=== PATIENT | male | born 1980 | race Native Hawaiian/Other Pacific Islander ===

== ENCOUNTER 2019-03-22 09:59 | Emergency (ER) | payer SELFPAY ==
[2019-03-22 10:21] VITALS: BP 163/98
--- NOTE | 2019-03-22 12:45 | Emergency Department Report ---
ED Lower Extremity HPI - General Chief Complaint: Extremity Problem,Nontraumatic Stated Complaint: LEG PAIN Time Seen by Provider: 03/22/19 12:36 Source: patient Mode of arrival: Ambulatory Limitations: No Limitations - History of Present Illness MD Complaint: leg injury, ankle injury, fall -: days(s) (2) Injury: Leg: Right, Ankle: Right Type of Injury: inversion Place: home Severity: mild, moderate Worsens With: weight bearing, movement, palpation Context: fall Associated Symptoms: swelling, unable to bear weight - Related Data Previous Rx's Medication Instructions Recorded Last Taken Type Ketorolac [Toradol] 10 mg PO Q6H PRN #20 tablet 03/22/19 Unknown Rx Allergies Allergy/AdvReac Type Severity Reaction Status Date / Time No Known Allergies Allergy Verified 03/22/19 10:04 ED Review of Systems ROS: Stated complaint: LEG PAIN Other details as noted in HPI Comment: All other systems reviewed and negative ED Past Medical Hx - Past Medical History Previous Medical History?: No - Surgical History Past Surgical History?: No - Social History Smoking Status: Never Smoker Substance Use Type: None - Medications Home Medications: Home Medications Medication Instructions Recorded Confirmed Last Taken Type Ketorolac [Toradol] 10 mg PO Q6H PRN #20 tablet 03/22/19 Unknown Rx ED Physical Exam - General Limitations: No Limitations General appearance: alert, in no apparent distress - Head Head exam: Present: atraumatic, normocephalic - Eye Eye exam: Present: normal appearance, PERRL, EOMI Pupils: Present: normal accommodation - ENT ENT exam: Present: normal exam, mucous membranes moist - Neck Neck exam: Present: normal inspection - Respiratory Respiratory exam: Present: normal lung sounds bilaterally. Absent: respiratory distress, wheezes, rales, rhonchi - Cardiovascular Cardiovascular Exam: Present: regular rate, normal rhythm. Absent: systolic murmur, diastolic murmur, rubs, gallop - GI/Abdominal GI/Abdominal exam: Present: soft, normal bowel sounds - Rectal Rectal exam: Present: deferred - Extremities Exam Extremities exam: Present: normal inspection, tenderness, pedal edema, joint swelling. Absent: full ROM, calf tenderness - Expanded Lower Extremity Exam Right Lower Leg exam: Present: tenderness. Absent: ecchymosis, deformity, dislocation, palpable cord, Víctor's sign Ankle exam: Present: tenderness, swelling. Absent: laceration, ecchymosis - Back Exam Back exam: Present: normal inspection - Neurological Exam Neurological exam: Present: alert, oriented X3 - Psychiatric Psychiatric exam: Present: normal affect, normal mood - Skin Skin exam: Present: warm, dry, intact, normal color. Absent: rash ED Course Vital Signs 03/22/19 10:18 Temperature 98.3 F Pulse Rate 70 Respiratory 18 Rate Blood Pressure 163/98 Blood Pressure 163/98 [Right] O2 Sat by Pulse 98 Oximetry Critical care attestation.: If time is entered above; I have spent that time in minutes in the direct care of this critically ill patient, excluding procedure time. ED Disposition Clinical Impression: Ankle sprain Disposition: - TO HOME OR SELFCARE Is pt being admited?: No Does the pt Need Aspirin: No Condition: Stable Instructions: Ankle Sprain (ED) Prescriptions: Ketorolac [Toradol] 10 mg PO Q6H PRN #20 tablet PRN Reason: Pain Referrals: PRIMARY CARE, [Primary Care Provider] - 3-5 Days JANIE MAYA [Linter Operator] - 3-5 Days [facility] [Provider Group] - 3-5 Days
--- NOTE | 2019-03-22 13:36 | XRay Report ---
. RIGHT ANKLE 3 VIEWS INDICATION / CLINICAL INFORMATION: lateral ankle pain. COMPARISON: None available. FINDINGS: Mild diffuse soft tissue swelling is seen within the right ankle. There is no fracture or dislocation . Ankle mortise appears intact Signer Name: Jerrell Huber MD Signed: 03/22/2019 1:32 PM Workstation Name: [id number]
--- NOTE | 2019-03-22 13:37 | XRay Report ---
RIGHT TIBIA-FIBULA 2 VIEW(S) INDICATION / CLINICAL INFORMATION: proximal fibula pain COMPARISON: None available. FINDINGS: BONES / JOINT(S): No acute fracture or subluxation. No significant arthritis. SOFT TISSUES: No significant abnormality. ADDITIONAL FINDINGS: None. Signer Name: Alton Madison MD Signed: 03/22/2019 1:33 PM Workstation Name: [id number]
== END 2019-03-22 15:40 | disposition home or self-care (01) ==
LOC: ED 09:59
DX: S93.401A Sprain of unspecified ligament of right ankle, initial encounter (principal); X58.XXXA Exposure to other specified factors, initial encounter; Y93.89 Activity, other specified; Y92.488 Other paved roadways as the place of occurrence of the external cause; Y99.8 Other external cause status
CPT/HCPCS: 99283